=== PATIENT | male | born 1965 | race Hispanic/Latino ===

== ENCOUNTER 2017-09-27 07:42 | Outpatient (CLI) | payer OTHER ==
[2017-09-27] MEDS ORDERED: Gadobenate Dimeglumine 529 MG/1 ML (20ML VIAL) ONE (13:43)
== END 2017-09-27 07:43 | disposition home or self-care (01) ==
LOC: BICMRI 07:42
PROVIDERS: ATTEND Family Medicine
DX: G81.90 Hemiplegia, unspecified affecting unspecified side (principal)
CPT/HCPCS: 70553; A9579

== ENCOUNTER 2018-10-03 16:00 | Observation (INO) | payer OTHER ==
--- NOTE | 2018-10-03 17:07 | RAD ---
CHEST ONE VIEW: 10/03/18 INDICATION: Left upper chest wall pain. COMPARISON: None. FINDINGS: The lungs are clear. The heart size is normal. No acute osseous abnormality is evident. IMPRESSION: No acute cardiopulmonary abnormality. POS: [facility]PC
[2018-10-03 17:22] LABS: #Eosinphils 0.3 thou/uL (0.0-0.7); #Monocytes 0.4 thou/uL (0.11-0.59); #Neutrophils 3.8 thou/uL (1.40-6.50); %Basophils 0.5 % (0.0-1.0); %Eosinophils 4.3 % (0.0-10.0); %Lymphocytes 30.8 % (21.0-51.0); %Monocytes 5.6 % (0.0-10.0); %Neutrophils 58.8 % (42.0-75.0); Hemoglobin 17.7 g/dL (14.0-18.0); Mean Corpuscular HGB CONC 33.7 g/dL (32.0-36.0); Mean Corpuscular Hemoglobin 31.6 pg (27.0-31.0); Mean Corpuscular Volume 93.9 fL (78.0-98.0); Platelet Count 213 thou/uL (130-400); RBC Distribution Width 12.3 % (11.5-14.5); Red Blood Cell (RBC) Count 5.59 mill/uL (4.70-6.10); White Blood Cell (WBC) Count 6.5 thou/uL (4.8-10.8)
[2018-10-03] MEDS ORDERED: Aspirin Chewable 81 MG TAB ONE (17:28)
[2018-10-03 17:38] LABS: ALT (SGPT) 28 U/L (8-55); AST (SGOT) 22 U/L (5-34); Albumin 4.8 g/dL (3.5-5.0); Alkaline Phosphatase 97 U/L (40-150); Anion Gap 12 mmol/L (10-20); BUN (Urea Nitrogen) 12 mg/dL (8.4-25.7); Bilirubin, Total 0.5 mg/dL (0.2-1.2); CK (CPK) 132 U/L (30-200); Calc. Creatinine Clearance 0 mL/min (70-130); Carbon Dioxide 27 mmol/L (22-29); Chloride 104 mmol/L (98-107); Estimated GFR-MDRD 74; Globulin 3.4 g/dL (2.4-3.5); Glucose 104 mg/dL (70-105); Lipase 16 U/L (8-78); Potassium 3.8 mmol/L (3.5-5.1); Protein, Total 8.2 g/dL (6.0-8.3); Sodium 139 mmol/L (136-145)
[2018-10-03] MEDS ORDERED: Nitroglycerin 0.4 MG TAB 1 EACH ONE (17:56)
[2018-10-03 20:07] VITALS: BMI 35.9
[2018-10-03] MEDS ORDERED: Ondansetron ODT 4 MG TAB PO PRN (21:44)
[2018-10-03] MEDS ORDERED: Ondansetron PF 4 MG/2 ML Vial IVP PRN (21:44)
[2018-10-03] MEDS ORDERED: Nitroglycerin 0.4 MG TAB (25 Tab Bottle) PO PRN (21:44)
[2018-10-03] MEDS ORDERED: Acetaminophen 325 MG TAB PO PRN (21:44)
--- NOTE | 2018-10-04 04:19 | HP ---
PRIMARY CARE PHYSICIAN: No PCP. CODE STATUS: Full code. TIME OF EVALUATION: 9 p.m. CHIEF COMPLAINT: Chest pain. HISTORY OF PRESENT ILLNESS: This is a 53-year-old male patient with past medical history of obesity, recently has lost around 30 pounds, the patient has a family history of brother dying with acute MO in September this year at the age of 53. The patient presented with chest pain with no clear triggers. No alleviating factors. The pain was retrosternal and radiated to the left side, left arm and the neck, worsening with exertion associated with shortness of breath. Symptoms started suddenly, has been on and off for the past few days. REVIEW OF SYSTEMS: CONSTITUTIONAL: No fever, chills, or generalized weakness. RESPIRATORY: No cough, sputum production, or shortness of breath. CARDIOVASCULAR: The patient denies chest pain or palpitation. GASTROINTESTINAL: No nausea. No vomiting, diarrhea, or abdominal pain. 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 GENITOURINARY: No burning on urination. EXTREMITIES: No leg swelling. All other systems were reviewed and negative except for the findings mentioned above. PAST MEDICAL HISTORY: The patient has medical history of obesity. PAST SURGICAL HISTORY: No surgical history. FAMILY HISTORY:Reviewed and no noncontributory for current presentation. PSYCHIATRIC HISTORY: No psych history. SOCIAL HISTORY: The patient drinks alcohol socially, a beer every day. No drug use. No smoking history. KNOWN ALLERGIES: No known drug allergies. REPORTED MEDICATIONS: None. PHYSICAL EXAMINATION: VITAL SIGNS: On presentation; blood pressure 134/84 with heart rate 68, respiratory rate was 17, temperature 98.1, pain was 4/10, and oxygen saturation 98% on room air. GENERAL APPEARANCE: The patient is alert, oriented, not in acute distress. HEENT: Eyes, normal conjunctivae. Moist oral mucosa. Anicteric. NECK: No JVD. RESPIRATORY: Bilateral air entry. No rales. No wheezes. Symmetric expansion. CARDIOVASCULAR: Normal rate, regular rhythm. No murmurs. No gallops. No edema. ABDOMEN: Soft. Normal bowel sounds. MUSCULOSKELETAL: Baseline range of motion and strength. No tenderness. SKIN: Warm, intact. No pallor. No rash. No redness. Peripheral pulses are present. Capillary refill seems to be intact. NEURO: No evidence of any new focal weakness. Baseline speech. Cranial nerves seem to be intact. PSYCH: The patient is in good mood. No anxiety. Optimal judgment. LABORATORY DATA: CARDIOVASCULAR STUDIES: EKG was reviewed. The patient has normal sinus rhythm with a rate of 68 with LA 168, QRS 90, and QT corrected 425. IMAGING STUDIES: Chest x-ray was reviewed. The patient has no acute cardiopulmonary abnormalities. LABORATORY RESULTS: Labs were reviewed. The patient has white count 6.5, hemoglobin 17.7, MCV 93.9, and platelet count 213. Chemistry; sodium 139, potassium 3.8, chloride 104, carbon dioxide 27, anion gap 12, BUN 12, creatinine 1.05, GFR 74, glucose 104, and calcium 10. Total bilirubin 0.5, AST 22, ALT 28, and alkaline phosphatase 97. CK 132. Troponin was negative x2. Serum total protein 8.2, albumin 4.8, globulin 3.4, albumin to globulin ratio 1.4, and lipase 16. ASSESSMENT AND PLAN: The patient will be placed in the hospital with following medical problems; 1. Chest pain. Rule out acute coronary syndrome. Troponin was negative. EKG with no significant abnormalities. The patient does have a brother, who had of an acute MO in September of this year at the age 53. We will rule out any acute coronary syndrome. If negative, we will proceed with a stress test to rule out any underlying coronary artery disease as a source of the chest pain. We will put him on observation in tele. 2. History of obesity. The patient has lost 30 pounds and has reported having healthy lifestyle after changing diet, no exercises, has been counseled and advised to continue with these habits. 3. Deep venous thrombosis prophylaxis. Job ID: [id number] [facility]
[2018-10-04 05:41] LABS: #Eosinphils 0.3 thou/uL (0.0-0.7); #Lymphocytes 2.2 thou/uL (1.20-3.40); #Monocytes 0.4 thou/uL (0.11-0.59); #Neutrophils 3.8 thou/uL (1.40-6.50); %Basophils 0.6 % (0.0-1.0); %Eosinophils 4.6 % (0.0-10.0); %Lymphocytes 32.9 % (21.0-51.0); %Monocytes 5.4 % (0.0-10.0); %Neutrophils 56.5 % (42.0-75.0); Hemoglobin 16.9 g/dL (14.0-18.0); Mean Corpuscular HGB CONC 33.4 g/dL (32.0-36.0); Mean Corpuscular Hemoglobin 31.5 pg (27.0-31.0); Mean Corpuscular Volume 94.2 fL (78.0-98.0); Mean Platelet Volume 9.3 fL (7.4-10.4); Platelet Count 214 thou/uL (130-400); RBC Distribution Width 12.4 % (11.5-14.5); Red Blood Cell (RBC) Count 5.36 mill/uL (4.70-6.10); White Blood Cell (WBC) Count 6.7 thou/uL (4.8-10.8)
[2018-10-04 06:06] LABS: Anion Gap 12 mmol/L (10-20); BUN (Urea Nitrogen) 15 mg/dL (8.4-25.7); Calc. Creatinine Clearance 130 mL/min (70-130); Calcium 9.7 mg/dL (7.8-10.44); Carbon Dioxide 24 mmol/L (22-29); Chloride 108 mmol/L (98-107); Estimated GFR-MDRD 86; Glucose 92 mg/dL (70-105); Potassium 4.1 mmol/L (3.5-5.1); Sodium 140 mmol/L (136-145)
[2018-10-04 08:08] VITALS: BP 122/73; TEMP 97.6
[2018-10-04] MEDS ORDERED: Enoxaparin Sodium 40 MG/0.4 ML SYRINGE SC SCH (09:00)
--- NOTE | 2018-10-04 10:30 | PDOC.PN ---
- Subjective Encounter Start Date: 10/04/18 Encounter Start Time: 10:28 Mr. Hand was seen today in follow-up of chest pain. He says he feels better this morning. He is not having any chest pain. - Objective Resuscitation Status - Order Detail: 10/03/18 21:44 Resuscitation Status Routine Resuscitation Status: FULL: Full Resuscitation MAR Reviewed: Yes Vital Signs & Weight: Vital Signs (12 hours) Temp Pulse Resp BP Pulse Ox 10/04/18 07:43 97.6 F 68 16 122/73 94 L 10/04/18 04:14 97.7 F 69 18 108/59 L 95 Weight Weight 215 lb 8 oz I&O: 10/03/18 10/04/18 10/05/18 06:59 06:59 06:59 Intake Total 100 Balance 100 Result Diagrams: 10/04/18 04:25 10/04/18 04:25 Phys Exam - Physical Examination HEENT: PERRLA Respiratory: no wheezing, no rales, no rhonchi, clear to auscultation bilateral Cardiovascular: RRR, no significant murmur, no rub Gastrointestinal: soft, non-tender, no distention, positive bowel sounds Musculoskeletal: no edema, pulses present Dx/Plan (1) Chest pain Code(s): R07.9 - CHEST PAIN, UNSPECIFIED Status: Acute - Plan * Chest pain- probable non- cardiac- stress test was negative * Discussed diet and exercise * Stable for discharge home a close outpatient follow-up..
--- NOTE | 2018-10-04 11:06 | DIS ---
DATE OF ADMISSION: 10/03/2018 DATE OF DISCHARGE: 10/04/2018 PRIMARY CARE PHYSICIAN: The patient currently does not have a primary care physician. DISCHARGE DISPOSITION: Home. PRIMARY DISCHARGE DIAGNOSES: 1. Chest pain. 2. Obesity. DISCHARGE MEDICATIONS: None. PROCEDURES: Procedures done during the hospital stay, the patient had an exercise stress test, which was negative. CODE STATUS: Full code. ALLERGIES: NO KNOWN DRUG ALLERGIES. HOSPITAL COURSE: Mr. Hand is a pleasant 53-year-old gentleman, who was admitted to the hospital after experiencing chest pain. The full details of which are outlined in the history of present illness. It does appear that the chest pain was atypical in its presentation. He was placed in observation and ruled out and an exercise stress test was obtained. The patient's stress test was negative and the patient is essentially chest pain free the following day. He will be discharged home and to have close outpatient followup. He will need to establish a primary care physician in the area. A heart-healthy diet as well as exercise was discussed as well as routine outpatient followup. Job ID: [id number]
== END 2018-10-04 11:53 | disposition home or self-care (01) ==
LOC: ERS 16:00 → 2SW 19:49
PROVIDERS: ADMIT Emergency Medicine; ATTEND Emergency Medicine
DX: R07.9 Chest pain, unspecified (principal); E66.9 Obesity, unspecified; Z68.35 Body mass index [BMI] 35.0-35.9, adult
CPT/HCPCS: 36415; 71045; 80048; 80053; 82550; 83690; 84484; 85025; 93005; 93017; 94760; 96372; G0378; J1650